=== PATIENT | female | born 1965 | race Caucasian/White ===

== ENCOUNTER → 2017-07-29 | Emergency (ER) | payer OTHER ==
[~2017-07-29] VITALS: Ht 165.1 cm; Wt 88.0 kg
[~2017-07-29] MED LIST: CATAFLAM50 MG PO; CIPRO500 MG PO; COZAAR50 MG; DICY20TA PO; FOLIC ACID1 MG; INTESTINEX1 CAP PO; LEVSIN0.125 MG SL; PREVACID30 MG PO; PROTONIX40 MG PO; RECTICARE30 GM TP; TOPROL XL25 M1; TRAM1TAB PO; TREXALL15 MG; TYLENOL-CODEINE1 TAB PO; ULTRACET PO; WELLBUTRIN SR150 MG
== END | disposition home or self-care (01) ==
LOC: ER 16:13
DX: K52.89 Other specified noninfective gastroenteritis and colitis (principal)

== ENCOUNTER → 2018-10-11 06:00 | Outpatient (CLI) | payer OTHER | END | disposition home or self-care (01) | LOC: LAB 06:00 → ADM 13:45 → AMB-ENDOS 10-15 13:45 → EDSTATUS 10-15 13:45 | DX: R19.5 Other fecal abnormalities (principal); K92.1 Melena; Z01.812 Encounter for preprocedural laboratory examination; K64.2 Third degree hemorrhoids ==